=== PATIENT | female | born 1950 | race Caucasian/White ===

== ENCOUNTER 2016-11-01 12:21 | Emergency (ER) | payer MEDICARE, OTHER ==
[2016-11-01 13:04] LABS: Mean Cell Volume 86.3 fl (78-100); Mean Corpuscular Hemoglobin 30.5 pg (27-31); Mean Corpuscular Hgb Conc 35.3 g/dl (32-36); Mean Platelet Volume 10.6 fl (6.0-9.5); Platelet Count 360 K/mm3 (150-450); Red Blood Count 5.91 M/mm3 (4.2-5.4); Red Cell Distribution Width 13.8 % (11.5-14.0)
[2016-11-01 13:06] LABS: Total Cells Counted 100
--- NOTE | 2016-11-01 13:09 | ERNOTE ---
Abdominal HPI - Narrative Date of Service: 11/01/16 - General Chief Complaint: Abdominal Pain Time Seen by Provider: 11/01/16 12:39 Source: patient Exam Limitations: no limitations - Immun/Allergies/Home Medications Immunizatons: IMMUNIZATION HX History of Influenza Vaccine No Hx Pneumococcal Vaccination No Allergies/Adverse Reactions: Allergies No Known Allergies Allergy (Verified 11/01/16 12:32) Home Medications: HOME MEDICATIONS Crestor 20 mg PO DAILY 01/05/16 [Last Taken Unknown] Effexor 300 mg pe PO DAILY 01/05/16 [Last Taken Unknown] Fish Oil 1,000 mg PO DAILY 01/05/16 [Last Taken Unknown] Lantus 45 units SC HS 01/05/16 [Last Taken Unknown] Lisinopril 10 mg PO DAILY 01/05/16 [Last Taken Unknown] - History of Present Illness Narrative: Pt. comes in with c/o abdominal pain cramping and watery stools with the last part of her stools appearing as dark brown jelly stools. Pt. states that she has had this problem in the past and had a barium study by dr daniels who suggested that she start miralx but she has not been doing this because she feels she needs to have bigger stools than this is giving her. Pt. denies any fevers, SOB, CP, nausea, vomiting, or recent injury. Review of Systems - Review of Systems Constitutional: Present: weakness. Absent: fever, chills, fatigue, malaise EYE: Present: no symptoms reported ENT: Present: no symptoms reported Respiratory: Present: no symptoms reported. Absent: shortness of breath, cough , wheezing Cardiology: Present: no symptoms reported. Absent: chest pain, palpitations, edema Gastrointestinal/Abdominal: Present: diarrhea, abdominal pain. Absent: nausea, vomiting Genitourinary: Present: no symptoms reported Musculoskeletal: Present: no symptoms reported. Absent: back pain, joint pain Skin: Present: no symptoms reported Neurological: Present: other - tremor and ataxia baseline for pt. All Other Systems: All systems neg except as marked - Patient's Past Medical History Patient History - Medical: Diabetes Type 2, Depression Patient History - Cardiac/Respiratory: Hypertension, Hyperlipidemia Patient History - Cancer: No Hx of Cancer Patient History - Surgical Procedures: Appendectomy, Hysterectomy, Tubal Ligation Patient History - Other: None - Social History Living Situations: home Psych History: Hx of Depression Smoking Status: Current every day smoker Alcohol Use: none Drug Use: none - Immunizations Hx Pneumococcal Vaccination: No History of Influenza Vaccine: No Physical Exam - Physical Exam General Appearance: Present: wd/wn, alert, no apparent distress Head Exam: Present: normal inspection, no evidence of injury Eye Exam: Normal inspection: bilateral, PERRL: bilateral, EOMI: bilateral Ears, Nose, Throat: Present: normal ENT inspection, normal pharynx Respiratory: Present: no respiratory distress, normal breath sounds, no accessory muscle use, chest nontender, lungs clear Cardiovascular/Chest: Present: regular rate, rhythm, no murmur, normal peripheral pulses Gastrointestinal/Abdominal: Present: tenderness - diffuse, distended, guarding, rebound. Absent: McBurney sign, Obturator sign, Taylor sign, Psoas sign Back Exam: Present: normal inspection, normal range of motion, no CVA tenderness , no vertebral tenderness Extremity Exam: Present: normal inspection, non-tender, normal range of motion, no edema Neurological Exam: Present: alert, oriented, normal mood/affect, no motor/ sensory deficits Skin Exam: Present: warm/dry, pallor ED Progress - Date and Time Seen: Date and Time: 11/01/16 19:22 Discussed with Tita Li and as pt is in severe acute kidney failure pt. is not appropriate for this facility for admission. Discussed with Dr Osei in the ER at [facility] and he is going to call back after checking with mac operator to see if this patient is appropriate for transfer 11/01/16 19:28 Dr Osei returned call and states that surgeon feels that it is too much for them to see at [facility]. 11/01/16 19:[address] ontiveros at [facility] and he accepts transfer of pt. for small bowel inflammation, sepsis, dehydration, and acute renal failure - Vital Signs Patient's Vital Signs:: I have reviewed the patient's vital signs. Vital Signs: Vital Signs 11/01/16 11/01/16 12:25 12:52 Temperature 36.3 C L Pulse Rate 88 84 Respiratory 12 Rate Blood Pressure 97/74 100/76 O2 Sat by Pulse 96 95 Oximetry - X-Ray X-Ray #1 X-Ray: abdomen Interpretation: Reviewed by me X-ray Comments: abnormal bowel gas pattern and possible bowel wall thickening - Progress/Reassessment Chief Complaint: Abdominal Pain Progress:: Unchanged Departure - Departure Clinical Impression: Inflammation of small intestine, Dehydration Sepsis Qualifiers: Sepsis type: sepsis due to unspecified organism Qualified Code(s): A41.9 - Sepsis, unspecified organism Acute renal failure Qualifiers: Acute renal failure type: unspecified Qualified Code(s): N17.9 - Acute kidney failure, unspecified Disposition: Other health care facility Condition: Serious Referrals: Soni Robles APN [Primary Care Provider] -
[2016-11-01 13:18] LABS: Band 16 % (0-2.0); Lymphocyte 16 % (20-51); Monocyte 3 % (0-9); Neutrophil 65 % (42-75); Neutrophil # 18.9 K/mm3 (1.3-6.0)
[2016-11-01 13:19] LABS: Dohle Bodies 1+; Platelet Estimate Normal (NORMAL)
[2016-11-01 13:22] LABS: Albumin * 3.7 gm/dl (3.4-5.0); Anion Gap 18.7 mmol/L (6.8-13.8); Bilirubin, Total 0.3 mg/dL (0.0-1.1); Ca. Corrected For Albumin 9.5 mg/dL (8.4-10.2); Calcium * 9.6 mg/dL (7.9-10.9); Carbon Dioxide 25.2 mmol/L (24-32.6); Potassium 4.9 mmol/L (3.4-4.6); Total Protein 8.3 gm/dL (6.2-8.2)
[2016-11-01 13:24] LABS: Urine Bilirubin 1 mg/dl (NEGATIVE); Urine Blood Negative /ul (NEGATIVE); Urine Ketone 5 mg/dL (NEGATIVE); Urine Nitrite Negative (NEGATIVE); Urine Protein 30 mg/dL (NEGATIVE); Urine Specific Gravity >=1.030 SP.GR. (1.005-1.010); Urine Urobilinogen Normal (NORMAL)
[2016-11-01 13:33] LABS: Urine Appearance Turbid; Urine Bacteria 1+; Urine Color Amber; Urine RBC None Seen /hpf (0-5); Urine Renal Epithelial Cell Few - 1+ /hpf; Urine WBC 0-5 /hpf (0-5)
[2016-11-01 13:34] LABS: Urine Hyaline Cast 0-5 /LPF
[2016-11-01] MEDS ORDERED: DIATRIZOATE MEGLUMINE, SODIUM 30 ML BTL PO ONE (13:37)
[2016-11-01] MEDS ORDERED: ONDANSETRON HCL/PF 2 MG/ML VIAL IV ONE (13:40)
[2016-11-01] MEDS ORDERED: ONDANSETRON HCL/PF 2 MG/ML VIAL ONE (14:03)
[2016-11-01] MEDS ORDERED: DIATRIZOATE MEGLUMINE, SODIUM 30 ML BTL ONE (14:03)
[2016-11-01] MEDS: NORMAL SALINE 1,000 ML IV PRN ×2 (15:55→18:37)
[2016-11-01 18:50] LABS: Anion Gap 17.2 mmol/L (6.8-13.8); BUN/Creatinine Ratio 13.5 (9.0-21.6); Calcium * 8.9 mg/dL (7.9-10.9); Carbon Dioxide 24.4 mmol/L (24-32.6); Potassium 4.6 mmol/L (3.4-4.6)
[2016-11-01 21:11] VITALS: BP 129/67
== END 2016-11-01 20:40 | disposition short-term general hospital (02) ==
LOC: ER 12:21
DX: K52.9 Noninfective gastroenteritis and colitis, unspecified (principal); E86.0 Dehydration; A41.9 Sepsis, unspecified organism; N17.9 Acute kidney failure, unspecified; F17.200 Nicotine dependence, unspecified, uncomplicated
CPT/HCPCS: 36415; 74020; 74176; 80048; 80053; 81001; 82150; 83605; 83690; 84145; 85025; 87040; 96361; 96365; 96375; 99285; J2405

== ENCOUNTER 2016-11-10 14:21 | Emergency (ER) | payer MEDICARE, OTHER ==
[2016-11-10] MEDS ORDERED: ACETAMINOPHEN 325 MG TABLET PO ONE (14:51)
[2016-11-10] MEDS ORDERED: HYDROcodone/ACETAMINOPHEN 1 EACH TABLET PO ONE (14:51)
--- NOTE | 2016-11-10 14:52 | ERNOTE ---
Medical Problem HPI - Narrative Date of Service: 11/10/16 - General Chief Complaint: General Assessment Time Seen by Provider: 11/10/16 14:43 Source: patient, family, RN notes reviewed Exam Limitations: no limitations - Immun/Allergies/Home Medications Immunizations: IMMUNIZATION HX History of Influenza Vaccine No Hx Pneumococcal Vaccination No Allergies/Adverse Reactions: Allergies No Known Allergies Allergy (Verified 11/10/16 14:35) Home Medications: HOME MEDICATIONS Crestor 20 mg PO DAILY 01/05/16 [Last Taken Unknown] Effexor 300 mg pe PO DAILY 01/05/16 [Last Taken Unknown] Fish Oil 1,000 mg PO DAILY 01/05/16 [Last Taken Unknown] Lantus 45 units SC HS 01/05/16 [Last Taken Unknown] Ciprofloxacin HCl [Cipro] 500 mg PO BID 11/10/16 [Last Taken Unknown] HYDROcodone/ACETAMINOPHEN [[place] 5-325] 1 tab PO Q6H PRN #16 tab 11/10/16 [Last Taken Unknown] Insulin Lispro [Humalog] PRN 11/10/16 [Last Taken Unknown] - History of Present History Narrative: 66 y/o female brought to the ED by her family for pain in her left lateral lower ribs. She was seen here on 11/01 and transferred to [facility] for acute renal failure and peritonitis. She reports having the pain a few days prior to this, but after she began having abdominal pain she forgot about it. Now that she is no longer having abdominal pain, she is concerned about the pain in her ribs. She reports that she had fallen several times at home at about the time she began having pain. Review of Systems - Review of Systems Constitutional: Present: recent illness, fatigue. Absent: fever, chills EYE: Present: no symptoms reported ENT: Present: no symptoms reported Respiratory: Absent: shortness of breath, cough Cardiology: Absent: chest pain, edema Gastrointestinal/Abdominal: Present: diarrhea - once a day. Absent: nausea, vomiting, abdominal pain Genitourinary: Absent: dysuria, hematuria, decreased urinary output Musculoskeletal: Absent: back pain, neck pain Skin: Absent: rash, lesions, lumps Neurological: Absent: dizziness/light-headedness, weakness Endocrine: Present: no symptoms reported Hematologic/Lymphatic: Present: no symptoms reported Psych: Present: no symptoms reported - Patient's Past Medical History Patient History - Medical: Diabetes Type 2, Depression Patient History - Cardiac/Respiratory: Hypertension, Hyperlipidemia Patient History - Cancer: No Hx of Cancer Patient History - Surgical Procedures: Appendectomy, Hysterectomy, Tubal Ligation Patient History - Other: None - Social History Living Situations: home Psych History: Hx of Depression Smoking Status: Current every day smoker Have you smoked in the past 12 months: Yes Alcohol Use: none Drug Use: none - Immunizations Hx Pneumococcal Vaccination: No History of Influenza Vaccine: No Physical Exam - Physical Exam General Appearance: Present: alert, anxious, thin, other - disheveled Head Exam: Present: normal inspection, no evidence of injury Neck: Present: normal inspection, nontender, supple Respiratory: Present: no respiratory distress, normal breath sounds, no accessory muscle use, lungs clear, chest tenderness - Left lateral lower ribs Cardiovascular/Chest: Present: regular rate, rhythm, no murmur Gastrointestinal/Abdominal: Present: nontender, nondistended, soft Back Exam: Present: normal inspection, no CVA tenderness Extremity Exam: Present: normal inspection, no edema Neurological Exam: Present: alert, oriented, normal mood/affect, no motor/ sensory deficits Skin Exam: Present: warm/dry, pallor ED Progress - Vital Signs Patient's Vital Signs:: I have reviewed the patient's vital signs. Vital Signs: Vital Signs 11/10/16 14:33 Temperature 37.1 C Pulse Rate 80 Respiratory 20 Rate Blood Pressure 195/92 O2 Sat by Pulse 95 Oximetry - X-Ray X-Ray #1 X-Ray: ribs - Left Interpretation: Reviewed by me X-ray Comments: No acute osseous abnormality noted - Progress/Reassessment Chief Complaint: General Assessment Progress:: Improved Departure - Departure Clinical Impression: Rib pain on left side Disposition: Home Follow Up Needed Condition: Stable Instructions: Rib Contusion Additional Instructions: Use a heating pad on the sore area - 20 minutes on and at least 20 minutes off in between times You can take 1 Tylenol with 1 [place] (Vicodin) Culturelle may help with your diarrhea Referrals: Soni Robles APN [Primary Care Provider] - Prescriptions: HYDROcodone/ACETAMINOPHEN [[place] 5-325] 1 tab PO Q6H PRN #16 tab PRN Reason: Pain
[2016-11-10] MEDS ORDERED: ACETAMINOPHEN 325 MG TABLET ONE (15:03)
[2016-11-10] MEDS ORDERED: HYDROcodone/ACETAMINOPHEN 1 EACH TABLET ONE (15:03)
[2016-11-10 15:35] VITALS: BP 171/86
== END 2016-11-10 15:47 | disposition home or self-care (01) ==
LOC: ER 14:21
DX: R07.81 Pleurodynia (principal); F17.200 Nicotine dependence, unspecified, uncomplicated